=== PATIENT | female | born 1980 | race Caucasian/White ===

== ENCOUNTER 2017-12-16 16:33 | Emergency (ER) | payer SELFPAY ==
[2017-12-16 17:18] LABS: Absolute Lymphocytes (CBC) 2.9 K/uL (0.7-4.9); Absolute Monocytes 0.8 K/uL (0.1-1.3); Absolute Neutrophil 5.6 K/uL (1.8-8.0); Eosinophils % 2.8 % (0-4.4); Hematocrit 41.5 % (36.0-45.0); Lymphocytes % 29.9 % (15.3-44.8); MCH 26.1 pg (27.0-35.0); MCV 82.4 fL (80-100); MPV 8.8 fL (7.6-11.3); Monocytes % 8.7 % (3.3-12.3); RBC Red Blood Cell Count 5.04 M/uL (3.86-4.86)
[2017-12-16 17:19] LABS: Protime INR 0.92
[2017-12-16 17:22] LABS: Potassium 4.1 mEq/L (3.6-5.0)
[2017-12-16 17:28] LABS: Albumin 3.9 g/dL (3.2-5.5); Bilirubin Direct 0.1 mg/dL (0-0.2); Bilirubin Total 0.6 mg/dL (0.3-1.2); Protein, Total 6.8 g/dL (6.0-8.3)
[2017-12-16 17:32] LABS: CKMB Creatine Kinase MB 1.1 ng/ml (0.3-4.0)
--- NOTE | 2017-12-16 17:37 | RAD REPORT ---
EXAM DESCRIPTION: RAD - Chest Single View - 12/16/2017 5:27 pm CLINICAL HISTORY: Shortness of breath, weakness slurred speech COMPARISON: None. TECHNIQUE: AP portable chest image was obtained 1715 hours . FINDINGS: Lungs are clear. Heart and vasculature are normal. No measurable pleural effusion and no p neumothorax. No gross bony abnormality seen. No acute aortic findings suspected. IMPRESSION: No acute cardiopulmonary process.
[2017-12-16 18:15] LABS: Urine Blood TRACE (NEG); Urine Glucose NEGATIVE (NEG); Urine Protein NEGATIVE (NEG); Urine Specific Gravity >1.030 (1.005-1.030)
--- NOTE | 2017-12-16 18:28 | RAD REPORT ---
EXAM DESCRIPTION: CT - Head Brain Wo Cont - 12/16/2017 6:19 pm CLINICAL HISTORY: TIA, CVA. COMPARISON: None. TECHNIQUE: All CT scans are performed using dose optimization technique as appropriate and may inclu de automated exposure control or mA/KV adjustment according to patient size. FINDINGS: No intracranial hemorrhage, hydrocephalus or extra-axial fluid collection.No areas of brai n edema or evidence of midline shift. Mild mucoperiosteal thickening is seen in both posterior maxillary antra and the sphenoid sinus. The mastoid air cells are clear. The calvarium is intact. IMPRESSION: No acute intracranial abnormality.
--- NOTE | 2017-12-16 18:34 | RAD REPORT ---
EXAM DESCRIPTION: MRI - Brain Wo Cont - 12/16/2017 6:15 pm CLINICAL HISTORY: TIA, CVA COMPARISON: Noncontrast CT head same date. TECHNIQUE: Multi-sequence, multiplanar MR imaging of the brain was performed without contrast. FINDINGS: No intracranial hemorrhage, hydrocephalus or extra-axial fluid collections.6 mm triangular T2/FLAIR hyperintensity is seen medial left frontal lobe, nonspecific. No edema or shift of midline structures. No findings to suspect brain mass. DWI is negative for acute CVA. Midline structures are normally formed. Mastoid air cells and paranasal sinuses are clear. IMPRESSION: Negative for acute CVA or other acute intracranial process. 6 mm triangular T2/FLAIR hyperintense focus is the in the medial left frontal lobe is nonspecific but doubtful to be of any long-term clinical significance. Followup brain MRI may be considered in 6-12 months for surveillance purposes.
--- NOTE | 2017-12-16 18:46 | EDPHYS ---
Physician Documentation [facility] Name: Ester Moore Age: 37 yrs Sex: Female : 1980 Arrival Date: 12/16/2017 Time: 16:33 Bed 6 Private MD: ED Physician Alex Vera HPI: 12/16 17:00 This 37 yrs old Female presents to ER via Ambulatory with complaints of cp Dizziness, Swelling. 17:00 The patient presents with dizziness. cp 17:00 Associated signs and symptoms: Pertinent positives: paresthesias of bilateral hands and cp right lower leg. 17:00 Onset: The symptoms/episode began/occurred 3 day(s) ago. Patient's baseline: Neuro: cp alert and fully oriented, Motor: no deficits, Ambulation: walks without assistance, Speech: normal. Patient reports she last felt normal this past Saturday. 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 - Social history:: Smoking status: Patient uses tobacco products, smokes one-half pack cigarettes per day. ROS: 17:05 Constitutional: Negative for body aches, chills, fever, poor PO intake. cp 17:05 Eyes: Negative for injury, pain, redness, and discharge, ENT: Negative for injury, cp pain, and discharge, Neck: Negative for injury, pain, and swelling, Cardiovascular: Negative for chest pain, palpitations, and edema, Respiratory: Negative for shortness of breath, cough, wheezing, and pleuritic chest pain, Abdomen/GI: Negative for abdominal pain, nausea, vomiting, diarrhea, and constipation. 17:05 MS/extremity: Positive for paresthesias, of the right hand and left hand and right lower leg, Negative for injury or acute deformity, decreased range of motion. 17:05 Skin: Negative for cellulitis, rash. 17:05 Neuro: Positive for dizziness, Negative for altered mental status, headache, syncope, near syncope, weakness. 17:05 All other systems are negative. Exam: 17:12 Constitutional: The patient appears in no acute distress, alert, awake, cp non-diaphoretic, non-toxic, well developed, well nourished, overweight 17:12 Head/Face: Normocephalic, atraumatic. Eyes: Pupils equal round and reactive to light, cp extra-ocular motions intact. Lids and lashes normal. Conjunctiva and sclera are non-icteric and not injected. Cornea within normal limits. Periorbital areas with no swelling, redness, or edema. ENT: Nares patent. No nasal discharge, no septal abnormalities noted. Tympanic membranes are normal and external auditory canals are clear. Oropharynx with no redness, swelling, or masses, exudates, or evidence of obstruction, uvula midline. Mucous membranes moist. Neck: Trachea midline, no thyromegaly or masses palpated, and no cervical lymphadenopathy. Supple, full range of motion without nuchal rigidity, or vertebral point tenderness. No Meningismus. Chest/axilla: Normal chest wall appearance and motion. Nontender with no deformity. No lesions are appreciated. Cardiovascular: Regular rate and rhythm with a normal S1 and S2. No gallops, murmurs, or rubs. Normal PMI, no JVD. No pulse deficits. Respiratory: Lungs have equal breath sounds bilaterally, clear to auscultation and percussion. No rales, rhonchi or wheezes noted. No increased work of breathing, no retractions or nasal flaring. Abdomen/GI: Soft, non-tender, with normal bowel sounds. No distension or tympany. No guarding or rebound. No evidence of tenderness throughout. Back: No spinal tenderness. No costovertebral tenderness. Full range of motion. Skin: Warm, dry with normal turgor. Normal color with no rashes, no lesions, and no evidence of cellulitis. MS/ Extremity: Pulses equal, no cyanosis. Neurovascular intact. Full, normal range of motion. 17:12 Musculoskeletal/extremity: Pulses: noted to be 2+ in the right radial artery, right dorsalis pedis artery, left radial artery and left dorsalis pedis artery, the right hand and left hand and right lower leg decreased sensation. 17:12 Skin: cellulitis, is not appreciated, no rash present. 17:12 Neuro: Orientation: to person, place \T\ time. Mentation: lucid, able to follow commands, Cerebellar function: is grossly normal, Motor: moves all fours, equal and symmetric, Gait: is steady, at a normal pace, without difficulty. 17:15 ECG was reviewed by the Attending Physician. cp Vital Signs: 16:41 BP 141 / 81; Pulse 92; Resp 16; Temp 96.6(TE); Pulse Ox 100% on R/A; Weight 90.72 kg lk1 (R); Height 5 ft. 3 in. (160.02 cm) (R); Pain 0/10; 17:30 BP 138 / 78; Pulse 88; Resp 16; Pulse Ox 100% on R/A; hb 18:51 BP 134 / 78; Pulse 86; Resp 16; Pulse Ox 99% on R/A; aj 16:41 Body Mass Index 35.43 (90.72 kg, 160.02 cm) lk1 MDM: 16:42 Patient medically screened. cp 18:29 Differential diagnosis: cardiac arrhythmia, CVA, generalized weakness, hypovolemia, cp , TIA, electrolyte abnormality. 18:45 Data reviewed: vital signs, nurses notes, lab test result(s), EKG, radiologic studies, cp CT scan, MRI, plain films. 18:45 Counseling: I had a detailed discussion with the patient and/or guardian regarding: the cp historical points, exam findings, and any diagnostic results supporting the discharge/admit diagnosis, lab results, radiology results, the need for outpatient follow up, a neurologist, to return to the emergency department if symptoms worsen or persist or if there are any questions or concerns that arise at home. 12/16 16:50 Order name: Basic Metabolic Panel; Complete Time: 17:55 cp 12/16 17:55 Interpretation: Normal except: GFR 84. cp 12/16 16:50 Order name: BNP; Complete Time: 17:55 cp 12/16 16:50 Order name: CBC with Diff; Complete Time: 17:55 cp 12/16 17:55 Interpretation: Normal except: RBC 5.04; MCH 26.1; MCHC 31.7; RDW 16.4. cp 12/16 16:50 Order name: Ckmb; Complete Time: 17:55 cp 12/16 16:50 Order name: CPK; Complete Time: 17:55 cp 12/16 16:50 Order name: LFT's; Complete Time: 17:55 cp 12/16 16:50 Order name: Magnesium; Complete Time: 17:55 cp 04/02 16:50 Order name: PT-INR; Complete Time: 17:55 cp 04/02 16:50 Order name: Ptt, Activated; Complete Time: 17:55 cp 04/02 16:50 Order name: Troponin (emerg Dept Use Only); Complete Time: 17:55 cp 04/02 17:55 Interpretation: TROPED < 0.03; Reviewed. cp 04/02 17:06 Order name: TSH cp 04/ 17:06 Order name: T3 Free cp 04/ 17:55 Order name: Urine Dipstick--Ancillary (enter results); Complete Time: 18:16 bd 04/02 18:17 Interpretation: Normal except: UBLD TRACE; UESTR 1+. cp 04/ 17:55 Order name: Urine --Ancillary (enter results); Complete Time: 18:16 bd 04/02 18:17 Interpretation: Normal except: USPGR >1.030. cp 04/ 16:50 Order name: Urine Test (obtain specimen); Complete Time: 18:17 cp 04 16:50 Order name: XRAY Chest (1 view); Complete Time: 17:55 cp 04 17:56 Interpretation: Report review. cp 04/02 16:50 Order name: EKG; Complete Time: 16:51 cp 0402 16:50 Order name: Cardiac monitoring; Complete Time: 17:25 cp 04/02 16:50 Order name: EKG - Nurse/Tech; Complete Time: 17:25 cp 04/02 16:50 Order name: IV Saline Lock; Complete Time: 17:25 cp 0402 16:50 Order name: Labs collected and sent; Complete Time: 17:25 cp 04/02 16:50 Order name: O2 Per Protocol; Complete Time: 17:25 cp 04/02 16:50 Order name: O2 Sat Monitoring; Complete Time: 17:25 cp 0402 16:50 Order name: Urine Dipstick-Ancillary (obtain specimen); Complete Time: 18:17 cp 04/02 16:50 Order name: MRI - Brain Wo Cont cp 04/02 16:55 Order name: CT Head Brain wo Cont; Complete Time: 18:31 cp 04/02 18:31 Interpretation: Report reviewed. cp EC:15 Rate is 73 beats/min. Rhythm is regular. SC interval is normal. QRS interval is normal. cp QT interval is normal. No ST changes noted. Interpreted by me. Reviewed by me. Administered Medications: No medications were administered Disposition: 12/17 13:16 Co-signature as Attending Physician, Alex Vera MD. Disposition: 12/16/17 18:46 Discharged to Home. Impression: Paresthesia of skin - Bilateral Hands and Right Lower Leg, Dizziness. - Condition is Stable. - Discharge Instructions: Dizziness, Paresthesia. - Prescriptions for Meclizine 25 mg Oral Tablet - take 1 tablet by ORAL route every 8 hours As needed; 30 tablet. - Medication Reconciliation Form, Thank You Letter, Antibiotic Education, Prescription Opioid Use form. - Follow up: Bowen Desai MD; When: 1 - 2 days; Reason: Recheck today's complaints. - Problem is new. - Symptoms are unchanged. Signatures: Dispatcher [employer] EDMS Latrell Ac PA PA cp Kluge, Leah, RN RN lk1 Angy Hodges RN RN Alex Vera MD MD
--- NOTE | 2017-12-16 18:46 | ER ---
Nurse's Notes [facility] Name: Ester Moore Age: 37 yrs Sex: Female : 1980 Arrival Date: 12/16/2017 Time: 16:33 Bed 6 Private MD: Diagnosis: Paresthesia of skin-Bilateral Hands and Right Lower Leg;Dizziness Presentation: 12/16 16:37 Presenting complaint: Patient states: "My heart beat was irregular on my fitbit lk1 yesterday and my coworkers said my speech was slurred. Today my right arm is numb and my right leg feels weak. I could not even put my shoes on today.". Transition of care: patient was not received from another setting of care. Onset of symptoms was December 15, 2017 at 08:00. Care prior to arrival: None. 16:37 Method Of Arrival: Ambulatory lk1 16:37 Acuity: CAYLA 2 lk1 Triage Assessment: 16:40 General: Appears in no apparent distress. Behavior is calm, cooperative, appropriate lk1 for age. Pain: Denies pain. Neuro: Level of Consciousness is awake, alert, obeys commands, Oriented to person, place, time, situation, Moves all extremities. Full function Gait is steady, Speech is normal, Facial symmetry appears normal, Pupils are PERRLA, Reports dizziness, numbness in right hand and right foot. 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 - Social history:: Smoking status: Patient uses tobacco products, smokes one-half pack cigarettes per day. Screenin:26 Abuse screen: Denies threats or abuse. Denies injuries from another. Nutritional hb screening: No deficits noted. Tuberculosis screening: No symptoms or risk factors identified. Fall Risk None identified. Assessment: 16:45 General: Appears in no apparent distress. Behavior is calm, cooperative. Pain: Denies hb pain. Neuro: Level of Consciousness is awake, alert, obeys commands, Oriented to person, place, time, situation, Land Surveyor are equal bilaterally Moves all extremities. Full function Gait is steady, Speech is normal, Facial symmetry appears normal, Pupils are PERRLA, Intact. Cardiovascular: Capillary refill < 3 seconds. Respiratory: Airway is patent Trachea midline Respiratory effort is even, unlabored, Respiratory pattern is regular, symmetrical, Breath sounds are clear bilaterally. GI: No signs and/or symptoms were reported involving the gastrointestinal system. : No signs and/or symptoms were reported regarding the genitourinary system. EENT: No signs and/or symptoms were reported regarding the EENT system. Derm: Skin is intact, is healthy with good turgor, Skin is pink, warm \\T\\ dry. Musculoskeletal: Capillary refill < 3 seconds. 17:45 Reassessment: Patient appears in no apparent distress at this time. No changes from hb previously documented assessment. Patient and/or family updated on plan of care and expected duration. Pain level reassessed. Patient is alert, oriented x 3, equal unlabored respirations, skin warm/dry/pink. 18:45 Reassessment: Patient appears in no apparent distress at this time. No changes from hb previously documented assessment. Patient and/or family updated on plan of care and expected duration. Pain level reassessed. Patient is alert, oriented x 3, equal unlabored respirations, skin warm/dry/pink. Vital Signs: 16:41 BP 141 / 81; Pulse 92; Resp 16; Temp 96.6(TE); Pulse Ox 100% on R/A; Weight 90.72 kg lk1 (R); Height 5 ft. 3 in. (160.02 cm) (R); Pain 0/10; 17:30 BP 138 / 78; Pulse 88; Resp 16; Pulse Ox 100% on R/A; hb 18:51 BP 134 / 78; Pulse 86; Resp 16; Pulse Ox 99% on R/A; aj 16:41 Body Mass Index 35.43 (90.72 kg, 160.02 cm) lk1 ED Course: 16:33 Patient arrived in ED. as 16:40 Triage completed. lk1 16:42 Latrell Ac PA is PHCP. cp 16:42 Alex Vera MD is Attending Physician. cp 16:42 Arm band placed on right wrist. lk1 16:45 Chani Grider, NISH is Primary Nurse. aj 16:47 Patient has correct armband on for positive identification. Placed in gown. Bed in low hb position. Call light in reach. Side rails up X 1. 17:17 Maintain EMS IV. Dressing intact. Site clean \\T\\ dry. Gauge \\T\\ site: 20 g LEFT FA. hb 17:25 X-ray completed. Portable x-ray completed in exam room. Patient tolerated procedure kc2 well. 17:25 XRAY Chest (1 view) In Process Unspecified. EDMS 17:39 Radiology exam delayed due to test not completed at this time. vm2 17:53 EKG done, by engineering technology instructor. reviewed by Latrell BADILLO. at1 17:56 Patient moved to MRI via wheelchair. ka 17:58 MRI - Brain Wo Cont In Process Unspecified. EDMS 18:[address] via wheelchair. sj 18:18 CT completed. Patient tolerated procedure well. Patient moved back from CT. sj 18:20 CT Head Brain wo Cont In Process Unspecified. EDMS 18:44 Bowen Desai MD is Referral Physician. cp 18:53 No provider procedures requiring assistance completed. IV discontinued, intact, hb bleeding controlled, No redness/swelling at site. Pressure dressing applied. Administered Medications: No medications were administered Outcome: 18:46 Discharge ordered by MD. cp 18:53 Discharged to home ambulatory. hb 18:53 Condition: stable 18:53 Discharge instructions given to patient, Instructed on discharge instructions, follow up and referral plans. medication usage, Demonstrated understanding of instructions, follow-up care, medications, Prescriptions given X 1. 18:54 Patient left the ED. hb Signatures: Dispatcher [employer] EDMS Chani Grider, Dian Rees RN, Amelia as gonzales, Amanda, director online marketing EKG Tat1 Latrell Ac PA PA cp Bonnie Savage, RN RN lk1 Felecia Link Heather, RN RN hb Carr, Kelsie kc2 Candy Monk vm2 Corrections: (The following items were deleted from the chart) 17:44 17:20 General: Pt to CT with nurse. hb hb 18:02 17:19 General: Code Stroke Called . hb hb 18:02 17:20 General: Pt to CT with nurse and Dr. Vera. hb hb
[2017-12-16 19:27] LABS: T3 Free 3.53 pg/ml (2.84-4.24)
[2017-12-16 19:45] LABS: Thyroid Stimulating Hormone 1.11 uIU/mL (0.34-5.60)
--- NOTE | 2017-12-17 06:07 | EKG ---
Test Date: 2017-12-16 Test Time: 17:12:02 Transportation Director: CORA MEASUREMENT RESULTS: Intervals: Rate: 73 [place]: 142 QRSD: 74 QT: 364 QTc: 401 [place]: P: 4 NJ: 142 QRS: 54 T: 22 INTERPRETIVE STATEMENTS: Normal sinus rhythm Normal ECG No previous ECG available for comparison Electronically Signed On 12-17-17 06:06:34 CDT by Mingo Archibald
== END 2017-12-16 18:54 | disposition home or self-care (01) ==
LOC: ER 16:33
DX: R20.2 Paresthesia of skin (principal); F17.210 Nicotine dependence, cigarettes, uncomplicated
CPT/HCPCS: 36415; 70450; 70551; 71045; 80048; 80076; 81003; 81025; 82550; 82553; 83735; 83880; 84443; 84481; 84484; 85025; 85610; 85730; 93005; 99284

== ENCOUNTER 2018-03-18 03:47 | Emergency (ER) | payer SELFPAY ==
[2018-03-18] MEDS ORDERED: KETOROLAC 30 MG/ML INJ ONE (04:20)
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
== END 2018-03-18 07:59 | disposition home or self-care (01) ==
LOC: ER 03:47
DX: S40.012A Contusion of left shoulder, initial encounter (principal); S80.12XA Contusion of left lower leg, initial encounter; F17.210 Nicotine dependence, cigarettes, uncomplicated; V29.09XA Motorcycle driver injured in collision with other motor vehicles in nontraffic accident, initial encounter; Y93.89 Activity, other specified; Y92.89 Other specified places as the place of occurrence of the external cause; Y99.8 Other external cause status; Z88.6 Allergy status to analgesic agent
CPT/HCPCS: 96372; 99284